=== PATIENT | female | born 1975 | race Caucasian/White ===

== ENCOUNTER 2017-08-12 00:06 | Outpatient (CLI) | payer MEDICAID ==
[2017-08-12 01:21] LABS: ADD UMIC NO; UR ASCORBIC ACID NEGATIVE (NEGATIVE); UR BILIRUBIN (Dip) NEGATIVE (NEGATIVE); UR BLOOD (Dip) NEGATIVE (NEGATIVE); UR CLARITY CLEAR (CLEAR); UR COLOR COLORLESS (YELLOW); UR GLUCOSE (Dip) NEGATIVE (NEGATIVE); UR KETONES (Dip) NEGATIVE (NEGATIVE); UR LEUKOCYTE ESTERASE (Dip) NEGATIVE Leu/ul (NEGATIVE); UR NITRITE (Dip) NEGATIVE (NEGATIVE); UR SPECIFIC GRAVITY (Dip) 1.002 (1.003-1.030); UR TOTAL PROTEIN (Dip) NEGATIVE (NEGATIVE); UR UROBILINOGEN (Dip) NEGATIVE (NEGATIVE)
[2017-08-12 02:19] LABS: ADD MAN DIFF? NO
[2017-08-12 02:21] LABS: WHITE BLOOD COUNT 7.2 10^3/ul (4.8-10.8)
[2017-08-12 02:21] LABS: BASOPHILS % 0.3 % (0.0-2.0); EOSINOPHILS # 0.2 10^3/ul (0.0-0.5); EOSINOPHILS % 2.9 % (0.0-7.0); HEMATOCRIT 29.7 % (37.0-47.0); HEMOGLOBIN 8.8 g/dl (12.0-16.0); LYMPHOCYTES # 1.6 10^3/ul (0.8-2.9); LYMPHOCYTES % 21.8 % (15.0-51.0); MEAN CORPUSCULAR HGB CONC 29.6 g/dl (32.0-37.0); MEAN CORPUSCULAR VOLUME 67.5 fl (82.0-101.0); MONOCYTE # 0.7 10^3/ul (0.3-0.9); MONOCYTES % 9.9 % (0.0-11.0); NEUTROPHIL # 4.6 10^3/ul (1.6-7.5); NEUTROPHILS % 63.3 % (39.0-77.0); NUCLEATED RED BLOOD CELLS% 0.4 /100WBC (0.0-0.0); PLATELET COUNT 258 10^3/UL (140-415); RED CELL DISTRIBUTION WIDTH 19.2 % (11.5-14.5)
[2017-08-12 02:48] LABS: ALANINE AMINOTRANSFERASE 30 IU/L (13-69); ALBUMIN 3.3 g/dl (3.3-4.9); ALBUMIN/GLOBULIN RATIO 0.94; ALKALINE PHOSPHATASE 142 IU/L (42-121); ANION GAP 11 (8-16); ASPARTATE AMINO TRANSFERASE 26 IU/L (15-46); BILIRUBIN,INDIRECT 0.1 mg/dl (0-1.1); BILIRUBIN,TOTAL 0.1 mg/dl (0.2-1.3); BLOOD UREA NITROGEN 5 mg/dl (7-20); CALCIUM 8.8 mg/dl (8.4-10.2); CARBON DIOXIDE 23 mmol/L (21-31); CHLORIDE 108 mmol/L (97-110); CREATININE 0.52 mg/dl (0.44-1.00); GLUCOSE 123 mg/dl (70-220); POTASSIUM 3.7 mmol/L (3.5-5.1); SODIUM 138 mmol/L (135-144); TOTAL PROTEIN 6.8 g/dl (6.1-8.1)
[2017-08-12] MEDS: ACETAMINOPHEN 500 MG TAB PO (03:41)
== END 2017-08-12 03:41 | disposition home or self-care (01) ==
LOC: OBT 00:06 → L-D 00:08 → OBT 03:41
DX: O99.613 Diseases of the digestive system complicating pregnancy, third trimester (principal); R19.7 Diarrhea, unspecified; R14.0 Abdominal distension (gaseous); O09.523 Supervision of elderly multigravida, third trimester; Z3A.29 29 weeks gestation of pregnancy
CPT/HCPCS: 76818; 80053; 81003; 85025; 87045; 87075; 87086

== ENCOUNTER 2017-09-24 13:10 | Outpatient (CLI) | payer MEDICAID | END 2017-09-24 14:30 | disposition home or self-care (01) | LOC: OBT 13:10 → L-D 13:10 → OBT 14:30 | DX: O09.523 Supervision of elderly multigravida, third trimester (principal); Z3A.36 36 weeks gestation of pregnancy | CPT/HCPCS: 76818 ==

== ENCOUNTER 2017-09-27 08:51 | Inpatient (IN) | payer MEDICAID ==
[2017-09-27] MEDS: LACTATED RINGER'S 1,000 ML IV ×3 (10:01→23:49)
[2017-09-27] MEDS: PRENATAL VITAMIN PO (11:00)
[2017-09-27 12:20] LABS: RUPTURE FETAL MEMBRANES NEGATIVE (NEGATIVE)
[2017-09-27] MEDS: ACETAMINOPHEN 325 MG TAB PO (21:17)
[2017-09-27] MEDS: GUAIFENESIN/DM 5ML CUP PO (21:18)
[2017-09-28] MEDS: CEPASTAT LOZENGE MT (00:12)
[2017-09-28] MEDS: GUAIFENESIN/DM 5ML CUP PO (05:32)
[2017-09-28] MEDS: LACTATED RINGER'S 1,000 ML IV ×2 (07:30→22:39)
[2017-09-28] MEDS: PRENATAL VITAMIN PO (08:46)
[2017-09-28] MEDS ORDERED: LACTATED RINGER'S 1,000 ML IV (10:51)
[2017-09-28] MEDS ORDERED: CARBOPROST 250 MCG INJ IM ×2 (11:00→19:30)
[2017-09-28] MEDS ORDERED: MISOPROSTOL 200 MCG TAB PR ×2 (11:00→19:30)
[2017-09-28] MEDS ORDERED: LIDOCAINE 1% (MPF) 30 ML INJ INJ (11:00)
[2017-09-28] MEDS ORDERED: OXYTOCIN 30 UNITS/LR 500 ML IV ×3 (11:00→19:30)
[2017-09-28] MEDS ORDERED: BUTORPHANOL 2 MG INJ IV ×2 (11:00)
[2017-09-28] MEDS ORDERED: METHYLERGONOVINE 0.2 MG INJ IM ×2 (11:00→19:30)
[2017-09-28 12:25] LABS: ADD MAN DIFF? NO
[2017-09-28 12:27] LABS: WHITE BLOOD COUNT 7.4 10^3/ul (4.8-10.8)
[2017-09-28 12:27] LABS: ABNORMAL IP MESSAGE 1; BASOPHILS % 0.3 % (0.0-2.0); EOSINOPHILS # 0.1 10^3/ul (0.0-0.5); EOSINOPHILS % 1.4 % (0.0-7.0); HEMATOCRIT 27.9 % (37.0-47.0); HEMOGLOBIN 8.1 g/dl (12.0-16.0); LYMPHOCYTES % 13.9 % (15.0-51.0); MEAN CORPUSCULAR HEMOGLOBIN 17.7 pg (29.0-33.0); MEAN CORPUSCULAR VOLUME 61.1 fl (82.0-101.0); MEAN PLATELET VOLUME 9.9 fl (7.4-10.4); MONOCYTE # 0.7 10^3/ul (0.3-0.9); MONOCYTES % 8.8 % (0.0-11.0); NEUTROPHIL # 5.5 10^3/ul (1.6-7.5); NEUTROPHILS % 73.6 % (39.0-77.0); NUCLEATED RED BLOOD CELLS # 0.1 10^3/ul (0.0-0.0); NUCLEATED RED BLOOD CELLS% 1.8 /100WBC (0.0-0.0); PLATELET COUNT 215 10^3/UL (140-415); RED BLOOD COUNT 4.57 10^6/ul (4.20-5.40); RED CELL DISTRIBUTION WIDTH 22.4 % (11.5-14.5)
[2017-09-28 12:38] LABS: POSITIVE DIFF @See below
[2017-09-28 12:52] LABS: INR 1.02; PROTIME 13.5 Sec (11.9-14.9); PT RATIO 1.1
[2017-09-28 12:53] LABS: PARTIAL THROMBOPLASTIN TIME 28.1 Sec (25.0-35.0)
[2017-09-28] MEDS: MISOPROSTOL 25 MCG CAPSULE PO (13:13)
[2017-09-28 15:48] LABS: RAPID PLASMA REAGIN NONREACTIVE (NR)
[2017-09-28] MEDS: OXYTOCIN 30 UNITS/LR 500 ML IV ×2 (18:23→18:33)
[2017-09-28] MEDS ORDERED: ZOLPIDEM 5 MG TAB PO (19:30)
[2017-09-28] MEDS ORDERED: OXYCODONE/ASPIRIN (4.88/325) TAB PO (19:30)
[2017-09-28] MEDS: OXYCODONE/ASPIRIN (4.88/325) TAB PO (21:00)
[2017-09-28] MEDS: SENNA/DOCUSATE NA (8.6MG/50MG) TAB PO (21:00)
[2017-09-29] MEDS: IBUPROFEN 600 MG TAB PO ×4 (00:41→18:27)
[2017-09-29] MEDS: LACTATED RINGER'S 1,000 ML IV (01:44)
[2017-09-29 07:24] LABS: ADD MAN DIFF? NO
[2017-09-29 07:33] LABS: ABNORMAL IP MESSAGE 1; BASOPHILS % 0.3 % (0.0-2.0); EOSINOPHILS # 0.1 10^3/ul (0.0-0.5); EOSINOPHILS % 1.5 % (0.0-7.0); HEMATOCRIT 26.6 % (37.0-47.0); HEMOGLOBIN 7.7 g/dl (12.0-16.0); LYMPHOCYTES # 1.4 10^3/ul (0.8-2.9); LYMPHOCYTES % 17.7 % (15.0-51.0); MEAN CORPUSCULAR HEMOGLOBIN 17.9 pg (29.0-33.0); MEAN CORPUSCULAR HGB CONC 28.9 g/dl (32.0-37.0); MEAN CORPUSCULAR VOLUME 61.7 fl (82.0-101.0); MEAN PLATELET VOLUME 9.6 fl (7.4-10.4); MONOCYTE # 0.8 10^3/ul (0.3-0.9); MONOCYTES % 9.6 % (0.0-11.0); NEUTROPHIL # 5.5 10^3/ul (1.6-7.5); NEUTROPHILS % 69.4 % (39.0-77.0); NUCLEATED RED BLOOD CELLS # 0.1 10^3/ul (0.0-0.0); PLATELET COUNT 199 10^3/UL (140-415); RED BLOOD COUNT 4.31 10^6/ul (4.20-5.40); RED CELL DISTRIBUTION WIDTH 22.5 % (11.5-14.5)
[2017-09-29 07:33] LABS: WHITE BLOOD COUNT 7.9 10^3/ul (4.8-10.8)
[2017-09-29 07:38] LABS: POSITIVE DIFF @See below
[2017-09-29] MEDS: SENNA/DOCUSATE NA (8.6MG/50MG) TAB PO ×2 (09:01→21:00)
[2017-09-30] MEDS: IBUPROFEN 600 MG TAB PO ×3 (00:43→11:13)
[2017-09-30] MEDS: SENNA/DOCUSATE NA (8.6MG/50MG) TAB PO (09:00)
[2017-09-30] MEDS: DIPHTH/TET/ACEL PERTUSS (ADULT) 0.5 ML VIAL IM* (09:00)
[2017-09-30] MEDS: LANOLIN 7 GM TUBE TOP (09:57)
[2017-09-30] MEDS: WITCH HAZEL/GLYCERIN PAD PR (09:57)
[2017-09-30] MEDS: BENZOCAINE 20% 56 ML SPRAY TOP (09:57)
== END 2017-09-30 14:00 | disposition home or self-care (01) | DRG 775 ==
LOC: OBT 08:51 → L-D 09-28 10:59 → OBT 09:56 → PP1 09:40
PROVIDERS: Obstetrics & Gynecology
PROC: 10E0XZZ Delivery of Products of Conception, External Approach (ICD-10-PCS; principal; 2017-09-28)
DX: O41.03X0 Oligohydramnios, third trimester, not applicable or unspecified (principal); Z37.0 Single live birth; Z3A.36 36 weeks gestation of pregnancy
CPT/HCPCS: 76818; 82962; 84112; 85025; 85610; 85730; 86592; 86900; 86901